=== PATIENT | male | born 1970 | race African-American/Black ===

== ENCOUNTER 2018-01-06 06:01 | Day surgery (SDC) | payer BC ==
[2018-01-01 11:31] LABS: BASOPHILS % (AUTO) 0.6 % (0-1); EOSINOPHILS # (AUTO) 0.4 X10'3 (0-0.9); EOSINOPHILS % (AUTO) 7.5 % (0-6); LYMPHOCYTES # (AUTO) 1.2 X10'3 (1.1-4.8); LYMPHOCYTES % (AUTO) 25.2 % (21-51); MEAN CORPUSCULAR HEMOGLOBIN 31.1 PG (27.0-31.0); MEAN CORPUSCULAR HGB CONC 33.1 % (33.0-36.5); MEAN CORPUSCULAR VOLUME 93.8 FL (78-98); MEAN PLATELET VOLUME 8.9 FL (7.4-10.4); MONOCYTES # (AUTO) 0.5 X10'3 (0-0.9); MONOCYTES % (AUTO) 10.2 % (2-12); NEUTROPHILS # (AUTO) 2.7 X10'3 (1.8-7.7); NEUTROPHILS % (AUTO) 56.5 % (42-75); PRE OP HEMOGLOBIN 16.6 g/dL (14.0-17.9); PRE OP PLATELET COUNT 155 X10'3 (140-440); RED BLOOD COUNT 5.33 X10'6 (4.70-6.10)
[2018-01-01 11:50] LABS: ALBUMIN 4.1 G/DL (3.4-5.0); ALBUMIN/GLOBULIN RATIO 1.1 (1.1-1.5); ALKALINE PHOSPHATASE 105 IU/L (46-116); BLOOD UREA NITROGEN 12 MG/DL (7-18); BUN/CREATININE RATIO 14.1 (5.4-32.0); CALCIUM 9.5 MG/DL (8.5-10.1); CHLORIDE 105 MMOL/L (99-107); CREATININE 0.85 MG/DL (0.60-1.10); PRE OP ALT 56 U/L (30-65); PRE OP ANION GAP 9 (8-16); PRE OP AST 25 U/L (10-37); PRE OP BILIRUB, TOTAL 0.4 MG/DL (0.0-1.0); PRE OP GLUCOSE 109 MG/DL (70-104); PRE OP POTASSIUM 3.9 MMOL/L (3.4-5.1); PRE OP SODIUM 142 MMOL/L (135-145); TOTAL PROTEIN 7.9 G/DL (6.4-8.2); eGFR > 90 ML/MIN
[2018-01-01 11:55] LABS: CLARITY,URINE CLEAR (Clear); COLOR,URINE YELLOW (Yellow); GLUCOSE, URINE >=1000 mg/dl (Neg); KETONES,URINE NEGATIVE (Neg); LEUKOCYTE ESTERASE ,URINE NEGATIVE (Neg); NITRITES, URINE NEGATIVE (Neg); OCCULT BLOOD,URINE NEGATIVE (Neg); PH,URINE 6.5 (4.8-8.0); PROTEIN,URINE NEGATIVE (Neg); UROBILINOGEN,URINE 0.2 E.U/dL (0.2-1.0)
[2018-01-01 11:58] LABS: UA COLLECTION TYPE CLN CATCH MIDSTREAM
[2018-01-01 12:17] LABS: BACTERIA,URINE NONE SEEN /HPF (Neg); RBC,URINE NONE SEEN /HPF (0-2); WBC,URINE NONE SEEN /HPF (0-4)
[2018-01-01 12:18] LABS: SQUAMOUS EPITHELIAL CELL,UR FEW /LPF (FEW)
[~2018-01-06] VITALS: Ht 185.4 cm; Wt 98.9 kg
[2018-01-06] VITALS (11 sets, daily range): BP systolic 115–146; BP diastolic 67–83
[~2018-01-06 06:01] MED LIST: EMPA25TA PO; METF500T7 PO; OMEP-50 PO; ROSU20TA30 PO; SUVO15TA PO; cefazolin/dext.iso 2gm/100 ML IV ONE; famotidine 20mg tablet PO ONE; ringers solution, lacted 1,000 ML IV SCH
[2018-01-06] MEDS ORDERED: ceFAZolin 1000mg inj ONE (06:44)
[2018-01-06] MEDS ORDERED: BUPIVAcaine/PF 2.5mg/ml (0.25%) 10ml vial ONE ×2 (06:44→06:48)
[2018-01-06] MEDS ORDERED: LIDOcaine 1% (10mg/ml) 2ml vial ONE (06:44)
[2018-01-06] MEDS ORDERED: LIDOcaine 1% 30ml preserv. free vial ONE (06:49)
[2018-01-06] MEDS ORDERED: sevoflurane 250ml liquid IH ONE (08:34)
[2018-01-06] MEDS ORDERED: fentaNYL/PF 50MCG/1 ML 2ML syringe ONE ×2 (08:37→08:56)
[2018-01-06] MEDS ORDERED: midazolam 2 mg/2 ml injection ONE (08:37)
[2018-01-06] MEDS ORDERED: propofol inj 20 ML IV ONE (08:38)
[2018-01-06] MEDS ORDERED: ringers solution, lacted 1,000 ML IV SCH (09:08)
[2018-01-06] MEDS ORDERED: morphine 4 MG/ML inj SYRINge IV PRN ×2 (09:10)
[2018-01-06] MEDS ORDERED: meperidine/PF 25mg/ml syringe IV PRN ×3 (09:10)
[2018-01-06] MEDS ORDERED: acetaminophen 1,000mg/100ml IV 100 ML IV PRN (09:10)
[2018-01-06] MEDS ORDERED: ondansetron/PF 4mg/2ml inj IV PRN (09:10)
[2018-01-06] MEDS ORDERED: labetalol 20mg/4ml (5mg/ml) syringe IV PRN (09:10)
[2018-01-06] MEDS ORDERED: ketorolac trometh. 30mg/ml inj. IV ONE (09:10)
== END 2018-01-06 11:00 | disposition home or self-care (01) ==
LOC: PAS 06:01
PROVIDERS: ATTEND Surgery
DX: K42.9 Umbilical hernia without obstruction or gangrene (principal); E78.00 Pure hypercholesterolemia, unspecified; E11.9 Type 2 diabetes mellitus without complications; K21.9 Gastro-esophageal reflux disease without esophagitis; Z72.89 Other problems related to lifestyle; Z79.84 Long term (current) use of oral hypoglycemic drugs; Z79.899 Other long term (current) drug therapy
CPT/HCPCS: 36415; 49585; 80053; 81001; 82948; 85025; 93005; A6449; J0690; J2250; J2704; J3010; J3490; A7000; J7120